=== PATIENT | male | born 1985 | race Caucasian/White ===

== ENCOUNTER → 2017-08-09 | Outpatient (CLI) | payer MEDICARE | LOC: KOH-I 08:00 | DX: M84.372D Stress fracture, left ankle, subsequent encounter for fracture with routine healing (principal); S92.002D Unspecified fracture of left calcaneus, subsequent encounter for fracture with routine healing; S96.812D Strain of other specified muscles and tendons at ankle and foot level, left foot, subsequent encounter; S93.491D Sprain of other ligament of right ankle, subsequent encounter | CPT/HCPCS: 73721 ==